=== PATIENT | male | born 1990 | race Caucasian/White ===

== ENCOUNTER 2017-01-26 14:26 | Emergency (ER) | payer OTHER ==
[2017-01-26] MEDS ORDERED: SUBOXONE 12 MG1 EACH (14:34)
== END 2017-01-26 16:48 | disposition home or self-care (01) ==
LOC: SED 14:26
DX: J02.9 Acute pharyngitis, unspecified (principal); F17.210 Nicotine dependence, cigarettes, uncomplicated
CPT/HCPCS: 87651; 99283